=== PATIENT | male | born 1985 | race Caucasian/White ===

== ENCOUNTER 2017-09-11 05:23 | Inpatient (IN) | payer OTHER ==
[2017-09-11] MEDS ORDERED: SODIUM CHLORIDE 0.9% 1,000 ML IV STA (05:45)
[2017-09-11] MEDS ORDERED: MIDAZOLAM (PF) 1 MG/ML 5 ML VIAL IV STA (05:51)
[2017-09-11 06:16] LABS: Basophils % (A) 0 %; CH 33.6; CHCM 33.9; Eosinophils # (A) 0.1 k/uL (0-0.7); Eosinophils % (A) 1 %; HCT 48.3 % (39.0-53.0); HDW 2.01; HGB 16.3 gm/dL (13.0-17.5); Luc # (Auto) 0.18; Luc % (Auto) 2; Lymphocytes # (A) 2.3 k/uL (1.0-4.8); Lymphocytes % (A) 29 %; MCH 33.5 pg (25.0-35.0); MCHC 33.6 g/dL (31.0-37.0); MCV 99.5 fL (80.0-100.0); Mean Platelet Volume 7.1; Monocytes # (A) 0.5 k/uL (0-1.0); Monocytes % (A) 6 %; Neutrophils # (A) 4.9 k/uL (1.3-7.7); Neutrophils % (A) 62 %; RBC 4.86 m/uL (4.30-5.90); RDW 12.5 % (11.5-15.5); WBC (Perox) 7.43
--- NOTE | 2017-09-11 06:17 | ED ---
Overdose HPI - General Chief Complaint: Overdose Stated Complaint: overdose Time Seen by Provider: 09/11/17 05:40 Source: EMS Mode of arrival: EMS Limitations: altered mental status - History of Present Illness Initial Comments: This patient is a 31-year-old man brought in by EMS. The patient is not able to give any history due to altered level of consciousness. It was reported that the patient had taken approximately 100 tablets of Tylenol PM and also had about a fifth of liquor to drink. The exact time of the ingestion was unknown. MD Complaint: intentional overdose -: unknown - Related Data Home Medications Medication Instructions Recorded Confirmed Gabapentin [Neurontin] 300 mg PO TID 09/11/17 09/11/17 Venlafaxine HCl [Effexor XR] 75 mg PO DAILY 09/11/17 09/11/17 Allergies Allergy/AdvReac Type Severity Reaction Status Date / Time No Known Allergies Allergy Verified 09/11/17 12:48 Review of Systems ROS Statement: Those systems with pertinent positive or pertinent negative responses have been documented in the HPI. ROS Other: All systems not noted in ROS Statement are negative. Limitations: ROS unobtainable due to patients medical condition (Unable to obtain review of systems due to altered level of consciousness) Past Medical History Past Medical History: Unable to Obtain History of Any Multi-Drug Resistant Organisms: Unobtainable Past Surgical History: Unable to Obtain Past Psychological History: Unable to Obtain Smoking Status: Unknown if ever smoked Past Alcohol Use History: Unable to Obtain Past Drug Use History: Unable to Obtain - Past Family History Mother History Unknown: Yes Family Medical History: Thyroid Disorder Additional Family Medical History / Comment(s): Vertigo, Chronic Pain, Sister(s) History Unknown: Yes Family Medical History: Diabetes Mellitus General Exam Limitations: altered mental status General appearance: obtunded Head exam: Present: atraumatic, normocephalic Eye exam: Present: normal appearance, PERRL (Pupils approximately 6 man and sluggish.). Absent: scleral icterus, conjunctival injection ENT exam: Present: mucous membranes dry Neck exam: Present: normal inspection, other (No palpable deformity or step-off) . Absent: tenderness Respiratory exam: Present: rhonchi (Scattered), other (Sonorous breath sounds). Absent: respiratory distress, wheezes, rales, stridor Cardiovascular Exam: Present: normal rhythm, tachycardia (Rate approximately 116 at my exam), normal heart sounds. Absent: systolic murmur, diastolic murmur , rubs, gallop GI/Abdominal exam: Present: soft, diminished bowel sounds. Absent: distended, guarding, rebound, mass Extremities exam: Present: normal inspection, normal capillary refill. Absent: pedal edema, calf tenderness Back exam: Present: normal inspection. Absent: tenderness (No deformity or step -off), vertebral tenderness Neurological exam: Present: altered, reflexes normal, other (Patient's GCS is 8 (E=1, V=2, M=5)) Skin exam: Present: warm, dry, intact, normal color. Absent: rash Course Vital Signs 09/11/17 09/11/17 09/11/17 05:24 06:40 06:51 Temperature 96.8 F L Pulse Rate 112 H 105 H 105 H Respiratory 18 20 20 Rate Blood Pressure 150/84 142/99 132/83 O2 Sat by Pulse 95 100 99 Oximetry 09/11/17 09/11/17 09/11/17 07:53 07:57 08:00 Temperature Pulse Rate 105 H 0 L 0 L Respiratory 16 Rate Blood Pressure 124/70 O2 Sat by Pulse 100 Oximetry 09/11/17 09/11/17 08:15 08:30 Temperature Pulse Rate 0 L 0 L Respiratory Rate Blood Pressure O2 Sat by Pulse Oximetry Procedures - Intubation Time Out Performed: Yes (Indication is altered level of consciousness with loss of protective airway) Sedative: Versed Laryngoscope: Alicia Size: 3 Assist Device Used: fiber optic device ET Tube Size: 8 Tube Placement Confirmation: visualized tube passing through cords Patient Tolerated Procedure: other (Unable to visualize cords with the direct laryngoscope and the glide scope was subsequently used.) Intubation Complications: difficult intubation, other (There were no desaturations) Additional Comments: Scope did reveal secretions in the pharynx. Medical Decision Making - Lab Data Result diagrams: 09/12/17 05:35 09/12/17 18:37 Lab Results 09/11/17 09/11/17 09/11/17 Range/Units 05:39 05:39 05:39 WBC 8.0 (3.8-10.6) k/uL RBC 4.86 (4.30-5.90) m/uL Hgb 16.3 (13.0-17.5) gm/dL Hct 48.3 (39.0-53.0) % MCV 99.5 (80.0-100.0) fL MCH 33.5 (25.0-35.0) pg MCHC 33.6 (31.0-37.0) g/dL RDW 12.5 (11.5-15.5) % Plt Count 240 (150-450) k/uL Neutrophils % 62 % Lymphocytes % 29 % Monocytes % 6 % Eosinophils % 1 % Basophils % 0 % Neutrophils # 4.9 (1.3-7.7) k/uL Lymphocytes # 2.3 (1.0-4.8) k/uL Monocytes # 0.5 (0-1.0) k/uL Eosinophils # 0.1 (0-0.7) k/uL Basophils # 0.0 (0-0.2) k/uL Sodium 145 (137-145) mmol/L Potassium 3.7 (3.5-5.1) mmol/L Chloride 109 H (98-107) mmol/L Carbon Dioxide 23 (22-30) mmol/L Anion Gap 13 mmol/L BUN 9 (9-20) mg/dL Creatinine 0.70 (0.66-1.25) mg/dL Est GFR (MDRD) Af Amer >60 (>60 ml/min/1.73 sqM) Est GFR (MDRD) Non-Af >60 (>60 ml/min/1.73 sqM) Glucose 63 L (74-99) mg/dL Calcium 8.4 (8.4-10.2) mg/dL Total Bilirubin 0.6 (0.2-1.3) mg/dL AST 33 (17-59) U/L ALT 25 (21-72) U/L Alkaline Phosphatase 80 (38-126) U/L Total Protein 6.8 (6.3-8.2) g/dL Albumin 4.2 (3.5-5.0) g/dL Salicylates <1.0 mg/dL Urine Opiates Screen Not Detected (NotDetected) Ur Oxycodone Screen Not Detected (NotDetected) Urine Methadone Screen Not Detected (NotDetected) Ur Propoxyphene Screen Not Detected (NotDetected) Acetaminophen 319.0 H* ug/mL Ur Barbiturates Screen Not Detected (NotDetected) U Tricyclic Antidepress Not Detected (NotDetected) Ur Phencyclidine Scrn Not Detected (NotDetected) Ur Amphetamines Screen Not Detected (NotDetected) U Methamphetamines Scrn Not Detected (NotDetected) U Benzodiazepines Scrn Not Detected (NotDetected) Urine Cocaine Screen Not Detected (NotDetected) U Marijuana (THC) Screen Not Detected (NotDetected) Serum Alcohol 288 mg/dL - EKG Data -: EKG Interpreted by Me EKG shows normal: sinus rhythm (With occasional PVCs), axis (Normal), intervals (Normal) Rate: tachycardia (Rate approximate 112 bpm) Interpretation: other (ST depressions in the inferior leads consistent with possible ischemia.) Critical Care Time Critical Care Time: Yes (40 minutes) Disposition Clinical Impression: Acetaminophen overdose, Alcohol intoxication, Altered mental status, Required emergent intubation Disposition: ADMITTED IP TO THIS [facility] Condition: Critical
[2017-09-11 06:28] LABS: ALT 25 U/L (21-72); AST 33 U/L (17-59); Alkaline Phosphatase 80 U/L (38-126); Anion Gap 13 mmol/L; Blood Urea Nitrogen 9 mg/dL (9-20); Calcium 8.4 mg/dL (8.4-10.2); Carbon Dioxide 23 mmol/L (22-30); Chloride 109 mmol/L (98-107); Glucose 63 mg/dL (74-99); Non-African American GFR(MDRD) >60 (>60 ml/min/1.73 sqM); Potassium 3.7 mmol/L (3.5-5.1); Salicylate <1.0 mg/dL; Sodium 145 mmol/L (137-145); Total Bilirubin 0.6 mg/dL (0.2-1.3); Total Protein 6.8 g/dL (6.3-8.2)
[2017-09-11] MEDS: PROPOFOL 1,000 MG/100 ML VIAL IV ONE ×2 (06:33→10:31)
[2017-09-11 06:43] LABS: Alcohol 288 mg/dL
--- NOTE | 2017-09-11 06:45 | XR ---
EXAM: XR Chest, 1 View CLINICAL HISTORY: Reason: post-intubation TECHNIQUE: Frontal view of the chest. COMPARISON: No relevant prior studies available. FINDINGS: Lungs: Mild hazy prominence of the interstitial markings is seen with evidence of mild peribronchial cuffing suggesting mild pulmonary edema. Pleural space: Unremarkable. No pneumothorax. Heart: Unremarkable. No cardiomegaly. Mediastinum: Unremarkable. Bones/joints: Unremarkable. Tubes, lines and devices: Tip of ET tube is approximately 4 cm from the charli. Tip of NG tube overlies the stomach. Monitoring leads overlie the chest, somewhat limiting evaluation. IMPRESSION: 1. Tip of ET tube is approximately 4 cm from the charli. Tip of NG tube overlies the stomach. 2. Mild hazy prominence of the interstitial markings with evidence of mild peribronchial cuffing suggesting mild pulmonary edema.
[2017-09-11] MEDS ORDERED: ACETYLCYSTEINE IV 10,500 MG in DEXTROSE 5% IN WATER 200 ML IV ONE ×2 (07:00)
[2017-09-11] MEDS ORDERED: IPRATROPIUM-ALBUTEROL 3 ML NEB INHALATION PRN (07:33)
[2017-09-11] MEDS ORDERED: ARTIFICIAL TEARS OINTMENT 3.5 GM TUBE BOTH EYES PRN (07:33)
[2017-09-11] MEDS ORDERED: NALOXONE 0.4 MG/ML 1 ML VIAL IV PRN (07:33)
[2017-09-11] MEDS ORDERED: DEXTROSE 5% IN WATER 500 ML with ACETYLCYSTEINE IV 3,500 MG IV ONE (08:00)
[2017-09-11 08:11] LABS: ABG HCO3 22 mmol/L (21-25); ABG PCO2 41 mmHg (35-45); ABG PH 7.36 (7.35-7.45); ABG PO2 >420 mmHg (83-108); ABG TCO2 23 mmol/L (19-24)
[2017-09-11 08:12] LABS: ABG Base Excess -2.5 mmol/L
[2017-09-11] MEDS: SODIUM CHLORIDE 0.9% 1,000 ML IV SCH ×3 (08:54→21:50)
[2017-09-11 09:16] LABS: Glucose,Whole Blood 135 mg/dL (75-99)
--- NOTE | 2017-09-11 10:17 | XR ---
EXAMINATION TYPE: XR chest 1V portable DATE OF EXAM: 09/11/2017 HISTORY: tube placement. REFERENCE: Previous study dated earlier today.. FINDINGS: The patient is ET tube and NG tube remain in place unchanged from previous. The lungs appear clear. Pleural space are clear. The heart is not enlarged. IMPRESSION: NO ACTIVE INTRATHORACIC DISEASE.
[2017-09-11] MEDS: CHLORHEXIDINE GLUCONATE 15 ML CUP MUCOUS MEM SCH ×2 (11:52→21:50)
[2017-09-11] MEDS: FAMOTIDINE 20 MG/2 ML VIAL IV SCH ×2 (11:52→21:50)
[2017-09-11 11:59] VITALS: BMI 21.5
[2017-09-11] MEDS ORDERED: DEXTROSE 5% IN WATER 1,000 ML with ACETYLCYSTEINE IV 7,000 MG IV ONE (12:00)
[2017-09-11 12:03] LABS: Basophils % (A) 0 %; CHCM 33.1; Eosinophils # (A) 0.1 k/uL (0-0.7); Eosinophils % (A) 1 %; HCT 44.6 % (39.0-53.0); HDW 2.02; HGB 14.4 gm/dL (13.0-17.5); Luc # (Auto) 0.14; Luc % (Auto) 2; Lymphocytes # (A) 1.8 k/uL (1.0-4.8); Lymphocytes % (A) 25 %; MCH 32.4 pg (25.0-35.0); MCHC 32.3 g/dL (31.0-37.0); MCV 100.3 fL (80.0-100.0); Mean Platelet Volume 7.3; Monocytes # (A) 0.3 k/uL (0-1.0); Monocytes % (A) 5 %; Neutrophils # (A) 4.7 k/uL (1.3-7.7); Neutrophils % (A) 67 %; RBC 4.45 m/uL (4.30-5.90); RDW 12.4 % (11.5-15.5); WBC (Perox) 7.14
[2017-09-11 12:15] LABS: ALT 28 U/L (21-72); AST 19 U/L (17-59); Alcohol 143 mg/dL; Alkaline Phosphatase 31 U/L (38-126); Anion Gap 12 mmol/L; Blood Urea Nitrogen 5 mg/dL (9-20); Calcium 7.6 mg/dL (8.4-10.2); Carbon Dioxide 20 mmol/L (22-30); Chloride 111 mmol/L (98-107); Glucose 83 mg/dL (74-99); Magnesium 1.6 mg/dL (1.6-2.3); Non-African American GFR(MDRD) >60 (>60 ml/min/1.73 sqM); Potassium 3.2 mmol/L (3.5-5.1); Sodium 143 mmol/L (137-145); Total Bilirubin 0.5 mg/dL (0.2-1.3); Total Protein 5.6 g/dL (6.3-8.2)
[2017-09-11 12:23] LABS: Acetaminophen 200.4 ug/mL
[2017-09-11 12:25] LABS: Glucose,Whole Blood 112 mg/dL (75-99)
[2017-09-11] MEDS ORDERED: Potassium Replacement Protocol 1 EACH MISC MISCELLANE PRN (13:32)
[2017-09-11] MEDS ORDERED: Magnesium Replacement Protocol 1 EACH MISC MISCELLANE PRN (13:33)
--- NOTE | 2017-09-11 14:06 | P.CNPUL ---
History of Present Illness Consult date: 09/11/17 Requesting physician: John Bennett Reason for consult: other (Acute Tylenol overdose) Chief complaint: Overdose History of present illness: This is a 31-year-old white male with history of depression, history of drug abuse, patient was recently admitted in [place] for Aleve overdose. Patient was eventually discharged home, and he is supposedly experiencing lots of financial issues, and if she was on the job. 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 Patient was supposedly placed on antidepressant medications, but he did not comply because he had symptoms of weakness and rigidity mostly related to his psychiatric medications. Earlier this morning, his girlfriend called EMS because she witnessed that he took about 100 tablets of Tylenol PM and A FIFTH of liquor. Exact time of the ingestion was unknown, but according to his girlfriend was intentional overdose, and he wanted to commit suicide. Patient arrived to the ER this morning, patient had altered level of consciousness, and he was intubated almost upon arrival to the ER. Placed on mechanical ventilation, patient was also placed on acetylcysteine intravenously as per protocol for acute acetaminophen overdose. His drug screen was mostly positive for elevated acetaminophen level, it was 319, and his serum alcohol level was 288. Repeat acetaminophen level in the ICU was noted to be down to 200.4, and alcohol level down to 143. Liver enzymes upon presentation to the ER were normal, repeat liver enzymes at 11:45 AM were also normal. ABG post intubation showed a pO2 of 420 be suitable for 1 pH of 7.36. Basic metabolic profile was noted to be normal. CBC was noted to be normal. Chest x-ray was also noted to show minimal haziness and prominence of the interstitial markings with mild peribronchial cuffing. Repeat chest x-ray in the ICU was basically normal. Patient is sedated, on propofol drip, and no information could be obtained from the patient himself, most of the information was obtained from his brother and mother at bedside. Review of Systems ROS unobtainable: due to endotracheal tube (According to his family, patient has mostly symptoms of depression, and lots of stress recently on the job, also experiencing financial difficulties. Otherwise not much information could be obtained from the family.) Past Medical History Past Medical History: Unable to Obtain Additional Past Medical History / Comment(s): ETOH, Overdose of Aleve, Osteomyelitis of third toe on right as a child, History of Any Multi-Drug Resistant Organisms: None Reported Past Surgical History: Adenoidectomy, Tonsillectomy Past Anesthesia/Blood Transfusion Reactions: No Reported Reaction Smoking Status: Current every day smoker - Past Family History Mother History Unknown: Yes Family Medical History: Thyroid Disorder Additional Family Medical History / Comment(s): Vertigo, Chronic Pain, Sister(s) History Unknown: Yes Family Medical History: Diabetes Mellitus Medications and Allergies Home Medications Medication Instructions Recorded Confirmed Type Gabapentin [Neurontin] 300 mg PO TID 09/11/17 09/11/17 History Venlafaxine HCl [Effexor XR] 75 mg PO DAILY 09/11/17 09/11/17 History Allergies Allergy/AdvReac Type Severity Reaction Status Date / Time No Known Allergies Allergy Verified 09/11/17 12:48 Physical Exam Vitals: Vital Signs Temp Pulse Resp BP Pulse Ox 09/11/17 11:45 74 16 96/52 100 09/11/17 11:30 95 28 H 96/52 100 09/11/17 11:15 78 15 90/54 100 09/11/17 11:00 79 18 90/54 100 09/11/17 10:45 80 13 90/53 100 09/11/17 10:30 81 20 90/53 100 09/11/17 10:15 82 13 95/58 100 09/11/17 10:00 86 18 95/58 100 09/11/17 09:58 96.8 F L 105 H 16 124/70 100 09/11/17 09:45 88 19 137/81 100 09/11/17 09:30 97.7 F 89 14 137/81 100 09/11/17 08:30 0 L 09/11/17 08:15 0 L 09/11/17 08:00 0 L 09/11/17 07:57 0 L 09/11/17 07:53 105 H 16 124/70 100 09/11/17 06:51 105 H 20 132/83 99 09/11/17 06:40 105 H 20 142/99 100 09/11/17 05:24 96.8 F L 112 H 18 150/84 95 Intake and Output 09/10/17 09/11/17 09/11/17 22:59 06:59 14:59 Intake Total 7.500 392.5 Output Total 700 250 Balance -692.500 142.5 Intake: Intake, IV Titration 7.500 392.5 Amount Propofol 1,000 mg In 100 7.500 92.5 ml @ Titrate IV .Q0M ONE Rx#:[id number] Sodium Chloride 0.9% 1, 300 000 ml @ 150 mls/hr IV . Q6H40M [facility] Rx#:[id number] Output: Gastric Drainage 300 Urine 400 250 Other: Weight 68.039 kg 68.039 kg Patient Weight 09/12/17 06:59 Weight 68.039 kg Limitations: altered mental status General appearance: obtunded, intubated, on mechanical ventilation, in no distress. Head exam: Normocephalic, minimal fine superficial laceration is noted on his left face. Eye exam: PERRLA, EOMI, no icterus noted, ENT exam: Intact and mucous membranes, moist. Neck exam: No cervical lymphadenopathy, no stridor, endotracheal tube is intact. No thyromegaly noted. Respiratory exam: Clear throughout, no crackles nor rhonchi and wheezes. Cardiovascular Exam: Normal S1 and S2, no S3 gallop, no murmur GI/Abdominal exam: Soft, nontender, no megaly, no rebound, positive bowel sounds. Extremities exam: No clubbing, no edema, no cyanosis. Back exam: Relatively unremarkable, Neurological exam: Cannot be assessed, patient is fully sedated, on propofol, and on mechanical ventilation. Skin exam: Minimal fine lacerations related to trauma very superficial noted on the lower extremities him a size area, possibly related to self injury. Results - Laboratory Findings CBC and BMP: 09/11/17 11:47 09/11/17 11:47 ABG ABG pH 7.36 (7.35-7.45) 09/11/17 07:43 ABG pCO2 41 mmHg (35-45) 09/11/17 07:43 ABG pO2 >420 mmHg (83-108) H 09/11/17 07:43 ABG O2 Saturation 100.0 % (94-97) H 09/11/17 07:43 Abnormal lab findings: Abnormal Labs 09/11/17 09/11/17 09/11/17 05:39 07:43 09:07 MCV ABG pO2 >420 H ABG O2 Saturation 100.0 H Potassium Chloride 109 H Carbon Dioxide BUN Creatinine Glucose 63 L POC Glucose (mg/dL) 135 H Calcium Alkaline Phosphatase Total Protein Albumin Acetaminophen 319.0 H* 09/11/17 09/11/17 09/11/17 11:47 11:47 12:24 MCV 100.3 H ABG pO2 ABG O2 Saturation Potassium 3.2 L Chloride 111 H Carbon Dioxide 20 L BUN 5 L Creatinine 0.61 L Glucose POC Glucose (mg/dL) 112 H Calcium 7.6 L Alkaline Phosphatase 31 L Total Protein 5.6 L Albumin 3.3 L Acetaminophen 200.4 H* - Diagnostic Findings Chest x-ray: image reviewed (As noted in HPI.) Assessment and Plan Plan: Impression: 1 acute acetaminophen overdose 2 acute alcohol intoxicatio 3 acute diphenhydramine overdose 4 acute hypoxic and hypercapnic respiratory failure secondary to multiple drug toxicity and overdose as noted above. 5 history of major depression and previous suicidal attempts. 6 acute suicidal attempt secondary to depression. Recommendation: Patient will remain on mechanical ventilation for now, will follow the protocol regarding his acetaminophen overdose, we'll address nutritional support, continue IV fluids, continue to monitor closely his acetaminophen level and his liver profile. I had a long discussion with his mother and his brother at bedside, and hopefully patient could be extubated in the next 24 hours. Psychiatric consult was initiated. Patient will also be placed on GI and DVT prophylaxis. We'll continue to follow closely. Critical care time is 40 minutes. Time with Patient: Greater than 30
[2017-09-11] MEDS: MAGNESIUM SULFATE-D5W PMX 1 GM in DEXTROSE/WATER 1 100ML.BAG IVPB SCH ×2 (14:36→15:37)
[2017-09-11] MEDS: POTASSIUM CHLORIDE 10 MEQ, LIDOCAINE 2% INJ 10 MG in SODIUM CHLORIDE 0.9% 100 ML IV SCH ×4 (14:48→21:52)
[2017-09-11 15:03] LABS: INR 1.2 (<1.2); Prothrombin Time 12.3 sec (9.0-12.0)
[2017-09-11] MEDS: PROPOFOL 1,000 MG/100 ML VIAL IV SCH ×3 (15:37→23:23)
--- NOTE | 2017-09-11 17:08 | HP ---
HISTORY AND PHYSICAL DATE OF ADMISSION: 09/11/17. PRESENTING COMPLAINT: Overdose. HISTORY OF PRESENTING COMPLAINT: This is a 31-year-old patient with apparently no family doctor. History is obtained from ER notes and ICU nurse who got the history from other family members visiting. Patient is in the process of getting a divorce, living with his girlfriend. Apparently drugs is the reason he is going through divorce. The patient did apparently has been drinking half a case of beer before doing cranium, doing mushrooms. 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 The patient's girlfriend called the EMS. The patient had taken an overdose of 100 tablets of Tylenol p.m. and a 5th of liquor. The girlfriend did make him vomit once. For airway protection the patient is intubated in the ER. The patient is currently in the ICU with ventilator with FiO2 45% and PEEP of 5. The patient is started on Mucomyst drip and Diprivan drip. The patient has been prescribed Effexor and Neurontin which apparently patient has not been taking. Patient did overdose about a month before. REVIEW OF SYSTEMS: Review of systems cannot be obtained. The patient is intubated. PAST MEDICAL HISTORY: Depression, recreational drug use. PAST SURGICAL HISTORY: Adenoidectomy, tonsillectomy. PAST PSYCH HISTORY: Anxiety and depression. SOCIAL HISTORY: The patient does smoke. Does drink beer and vodka in addition about 12-16 beers a day. Does marijuana. Has done prescription drug abuse. Has a medical marijuana card. Vicodin, Concerta, questionable bath salts. FAMILY HISTORY: Thyroid disorder, chronic pain. HOME MEDICATIONS: 1. Effexor XR 75 mg a day. 2. Neurontin 300 mg p.o. t.i.d. The patient may not be taking. ALLERGIES: None. PHYSICAL EXAMINATION: Vital signs on examination, temperature 96.8, pulse 105, respirations 16, blood pressure 120/70, pulse 100% on ventilator. GENERAL APPEARANCE: Lying in bed, intubated. EYES: Pupils equal. Conjunctivae normal. HEENT: Endotracheal tube in place. NECK: JVD unable to assess. Mass not palpable. Respiratory effort normal. LUNGS: Diminished breath sounds. CARDIOVASCULAR: First and second sounds are normal. No edema. ABDOMEN: Soft, nontender. Liver and spleen not palpable. LYMPHATIC: No lymph node palpable in the neck or axillae. PSYCHIATRY: Depressed. NEUROLOGICAL: Pupils equal. Plantars are downgoing. INVESTIGATIONS: White count 18, hemoglobin 16.3. Blood gas showed pH of 7.36, potassium 3.7, BUN and creatinine are normal. Accu-Cheks are noted. Serum acetone level was 319 on presentation. Serum alcohol was 288, ASSESSMENT: 1. Acute acetaminophen toxicity from taking 100 Tylenol PM though patient did vomit x1. 2. Acute metabolic encephalopathy from drug overdose including alcohol. 3. Acute alcohol intoxication, present on admission. 4. Major depression with attempted overdose. 5. Chronic alcohol dependence. 6. Chronic nicotine dependence. 7. Social situation in a patient undergoing a divorce and living with a girlfriend. 8. Acute hypoxic respiratory failure from respiratory compromise from medications. Patient is currently on ventilator assist. PLAN: Patient's electrolytes and liver function will be closely followed including [facility] which is the most sensitive situation like this with acetaminophen overdose. Patient getting IV fluids. Dr. Wagner from Critical Care was consulted. Also Psychiatry. Dr. Pritchard was consulted. Will also consult GI Dr. Lopes in view of the acetaminophen overdose. Patient also getting the IV Mucomyst. Patient will be given a nicotine patch. Prognosis is guarded. MMODL / IJN: [id number] /
[2017-09-11 17:18] LABS: Glucose,Whole Blood 80 mg/dL (75-99)
[2017-09-11 18:49] LABS: Basophils % (A) 0 %; CHCM 32.9; Eosinophils # (A) 0.1 k/uL (0-0.7); Eosinophils % (A) 1 %; HDW 2.02; HGB 14.6 gm/dL (13.0-17.5); Luc # (Auto) 0.19; Luc % (Auto) 2; Lymphocytes # (A) 2.3 k/uL (1.0-4.8); Lymphocytes % (A) 23 %; MCH 33.5 pg (25.0-35.0); MCHC 33.2 g/dL (31.0-37.0); MCV 100.8 fL (80.0-100.0); Mean Platelet Volume 7.1; Monocytes # (A) 0.5 k/uL (0-1.0); Monocytes % (A) 5 %; Neutrophils % (A) 69 %; RBC 4.36 m/uL (4.30-5.90); RDW 12.3 % (11.5-15.5); WBC 10.1 k/uL (3.8-10.6); WBC (Perox) 9.34
[2017-09-11 18:51] LABS: INR 1.2 (<1.2); Partial Thromboplastin Time 25.1 sec (22.0-30.0); Prothrombin Time 12.2 sec (9.0-12.0)
[2017-09-11] MEDS: DIAZEPAM 2 MG TAB PO SCH ×2 (18:59→22:04)
[2017-09-11 19:01] LABS: ALT 27 U/L (21-72); AST 18 U/L (17-59); Alkaline Phosphatase 50 U/L (38-126); Anion Gap 11 mmol/L; Blood Urea Nitrogen 4 mg/dL (9-20); Calcium 8.1 mg/dL (8.4-10.2); Carbon Dioxide 19 mmol/L (22-30); Chloride 111 mmol/L (98-107); Glucose 69 mg/dL (74-99); Non-African American GFR(MDRD) >60 (>60 ml/min/1.73 sqM); Potassium 3.3 mmol/L (3.5-5.1); Sodium 141 mmol/L (137-145); Total Bilirubin 0.8 mg/dL (0.2-1.3); Total Protein 5.4 g/dL (6.3-8.2)
[2017-09-11] MEDS: NICOTINE 21MG/24HR PATCH TRANSDERM SCH (20:06)
[2017-09-12 01:09] LABS: INR 1.2 (<1.2); Partial Thromboplastin Time 24.8 sec (22.0-30.0); Prothrombin Time 12.1 sec (9.0-12.0)
[2017-09-12 01:22] LABS: ALT 31 U/L (21-72); AST 29 U/L (17-59); Alkaline Phosphatase 49 U/L (38-126); Anion Gap 7 mmol/L; Blood Urea Nitrogen 6 mg/dL (9-20); Calcium 8.3 mg/dL (8.4-10.2); Carbon Dioxide 18 mmol/L (22-30); Chloride 112 mmol/L (98-107); Glucose 118 mg/dL (74-99); Non-African American GFR(MDRD) >60 (>60 ml/min/1.73 sqM); Potassium 3.6 mmol/L (3.5-5.1); Sodium 137 mmol/L (137-145); Total Bilirubin 1.2 mg/dL (0.2-1.3); Total Protein 5.2 g/dL (6.3-8.2)
[2017-09-12] MEDS ORDERED: POTASSIUM CHLORIDE ORAL LIQUID 40 MEQ/30 ML CUP NG-TUBE SCH (03:00)
[2017-09-12] MEDS ORDERED: ONDANSETRON 4 MG/2 ML VIAL IVP PRN (04:30)
[2017-09-12] MEDS: SODIUM CHLORIDE 0.9% 1,000 ML IV SCH ×3 (04:31→17:55)
[2017-09-12 04:42] LABS: ABG Base Excess -5.1 mmol/L; ABG HCO3 19 mmol/L (21-25); ABG PCO2 30 mmHg (35-45); ABG PH 7.41 (7.35-7.45); ABG PO2 185 mmHg (83-108); ABG TCO2 20 mmol/L (19-24)
[2017-09-12 06:07] LABS: Glucose,Whole Blood 115 mg/dL (75-99)
[2017-09-12 06:11] LABS: Basophils % (A) 0 %; CH 32.8; CHCM 31.9; Eosinophils # (A) 0.1 k/uL (0-0.7); Eosinophils % (A) 1 %; HCT 50.3 % (39.0-53.0); HDW 2.05; HGB 16.3 gm/dL (13.0-17.5); Luc # (Auto) 0.07; Luc % (Auto) 1; Lymphocytes # (A) 0.8 k/uL (1.0-4.8); Lymphocytes % (A) 7 %; MCH 33.5 pg (25.0-35.0); MCHC 32.5 g/dL (31.0-37.0); MCV 103.1 fL (80.0-100.0); Macrocytosis Slight; Mean Platelet Volume 7.2; Monocytes # (A) 0.3 k/uL (0-1.0); Monocytes % (A) 3 %; Neutrophils # (A) 11.2 k/uL (1.3-7.7); Neutrophils % (A) 89 %; RBC 4.88 m/uL (4.30-5.90); RDW 12.4 % (11.5-15.5); WBC 12.6 k/uL (3.8-10.6); WBC (Perox) 12.63
[2017-09-12 06:16] LABS: INR 1.4 (<1.2); Prothrombin Time 13.4 sec (9.0-12.0)
[2017-09-12 06:23] LABS: Anion Gap 11 mmol/L; Calcium 8.8 mg/dL (8.4-10.2); Carbon Dioxide 15 mmol/L (22-30); Chloride 112 mmol/L (98-107); Glucose 118 mg/dL (74-99); Non-African American GFR(MDRD) >60 (>60 ml/min/1.73 sqM); Sodium 138 mmol/L (137-145); Total Bilirubin 3.9 mg/dL (0.2-1.3)
[2017-09-12 06:28] LABS: Blood Urea Nitrogen 5 mg/dL (9-20); Magnesium 2.1 mg/dL (1.6-2.3); Phosphorous 2.6 mg/dL (2.5-4.5); Potassium 4.3 mmol/L (3.5-5.1); Total Protein 6.3 g/dL (6.3-8.2)
[2017-09-12 06:29] LABS: ALT 60 U/L (21-72); AST 169 U/L (17-59); Alkaline Phosphatase 66 U/L (38-126)
[2017-09-12] MEDS ORDERED: ENOXAPARIN 40 MG/0.4 ML SYRINGE SQ SCH (09:00)
[2017-09-12] MEDS: NICOTINE 21MG/24HR PATCH TRANSDERM SCH (09:06)
[2017-09-12] MEDS: FAMOTIDINE 20 MG/2 ML VIAL IV SCH ×2 (09:07→23:41)
[2017-09-12] MEDS: DIAZEPAM 2 MG TAB PO SCH ×4 (10:39→23:41)
--- NOTE | 2017-09-12 11:28 | P.PN ---
Subjective Progress Note Date: 09/12/17 progress note dated 09/12/2017 This is a 31-year-old male who was admitted with a diagnosis on September 11 of Tylenol overdose for the purposes of suicide. He was actually intubated for airway protection on September 11 because he has to poor mental status. He was extubated by my partner early this morning about 4:15. he apparently took quite a number of Tylenol PMs. the estimated his he took 100. His Tylenol level was initially 319 and then 74. He initially received IV N-acetylcysteine and then recommended to have oral N-acetylcysteine. The patient's currently been weaned to room air. His IV is saline at 150 mL an hour. the patient's Adler can be discontinued and he came back and transferred to the medical surgical floor. We did that we did ask psychiatry to see him. They've not seen him as yet. he has no particular complaints. awake and alert. he apparently also drank a fifth of liquor. This is his second suicide attempt. Initially it was attempted with Motrin. Objective - Vital Signs Vital signs: Vital Signs Temp 97.8 F 09/12/17 08:00 Pulse 96 09/12/17 10:00 Resp 30 H 09/12/17 10:00 BP 138/89 09/12/17 10:00 Pulse Ox 99 09/12/17 10:00 Intake & Output 09/11/17 09/12/17 09/12/17 18:59 06:59 18:59 Intake Total 1992.5 2822.890 662.5 Output Total 875 1245 450 Balance 1117.5 1577.890 212.5 Weight 68.039 kg 73.5 kg Intake: IV 2537.5 662.5 Dextrose 5% in Water 1, 687.5 62.5 000 ml @ 64.688 mls/hr IV .Q16H ONE with Acetylcysteine IV 7,000 mg Rx#:[id number] Potassium Chloride 10 meq 200 Lidocaine 2% Inj 10 mg In Sodium Chloride 0.9% 100 ml @ 100 mls/hr IV Q1HR [facility] Rx#:[id number] Sodium Chloride 0.9% 1, 1650 600 000 ml @ 150 mls/hr IV . Q6H40M [facility] Rx#:[id number] Intake, IV Titration 1992.5 240.390 Amount Magnesium Sulfate-D5w Pmx 200 1 gm In Dextrose/Water 1 100ml.bag @ 100 mls/hr IVPB Q1H [facility] Rx#: [id number] Potassium Chloride 10 meq 200 Lidocaine 2% Inj 10 mg In Sodium Chloride 0.9% 100 ml @ 100 mls/hr IV Q1HR [facility] Rx#:[id number] Propofol 1,000 mg In 100 92.5 ml @ Titrate IV .Q0M [facility] Rx#:[id number] Propofol 1,000 mg In 100 240.390 ml @ Titrate IV .Q0M [facility] Rx#:[id number] Sodium Chloride 0.9% 1, 1500 000 ml @ 150 mls/hr IV . Q6H40M [facility] Rx#:[id number] Other 45 Output: Gastric Drainage 600 Urine 875 645 450 Other: Voiding Method Indwelling Catheter Indwelling Catheter Indwelling Catheter - Exam No acute distress, oriented 3. HEENT examination is grossly unremarkable. Mucous membranes are moist. No oral lesions. Neck supple. Full range of motion. No adenopathy or thyromegaly. Cardiovascular examination reveals regular rhythm rate. S1-S2 normal. No S3- S4 or murmur. Lungs reveal relatively clear breath sounds. A few scattered mild rhonchi noted. No wheezes or crackles. Abdomen soft bowel sounds are heard. No masses or tenderness. Extremities are intact. No cyanosis clubbing or edema. Skin without rash. Neurologic examination is nonfocal. - Labs CBC & Chem 7: 09/12/17 05:35 09/12/17 05:35 Labs: Abnormal Lab Results - Last 24 Hours (Table) 09/11/17 09/11/17 09/11/17 Range/Units 11:47 11:47 12:24 WBC (3.8-10.6) k/uL MCV 100.3 H (80.0-100.0) fL Neutrophils # (1.3-7.7) k/uL Lymphocytes # (1.0-4.8) k/uL PT (9.0-12.0) sec INR (<1.2) ABG pCO2 (35-45) mmHg ABG pO2 (83-108) mmHg ABG HCO3 (21-25) mmol/L ABG O2 Saturation (94-97) % Potassium 3.2 L (3.5-5.1) mmol/L Chloride 111 H (98-107) mmol/L Carbon Dioxide 20 L (22-30) mmol/L BUN 5 L (9-20) mg/dL Creatinine 0.61 L (0.66-1.25) mg/dL Glucose (74-99) mg/dL POC Glucose (mg/dL) 112 H (75-99) mg/dL Calcium 7.6 L (8.4-10.2) mg/dL Total Bilirubin (0.2-1.3) mg/dL AST (17-59) U/L Alkaline Phosphatase 31 L (38-126) U/L Total Protein 5.6 L (6.3-8.2) g/dL Albumin 3.3 L (3.5-5.0) g/dL Acetaminophen 200.4 H* ug/mL 09/11/17 09/11/17 09/11/17 Range/Units 14:35 18:24 18:24 WBC (3.8-10.6) k/uL MCV 100.8 H (80.0-100.0) fL Neutrophils # (1.3-7.7) k/uL Lymphocytes # (1.0-4.8) k/uL PT 12.3 H 12.2 H (9.0-12.0) sec INR 1.2 H 1.2 H (<1.2) ABG pCO2 (35-45) mmHg ABG pO2 (83-108) mmHg ABG HCO3 (21-25) mmol/L ABG O2 Saturation (94-97) % Potassium (3.5-5.1) mmol/L Chloride (98-107) mmol/L Carbon Dioxide (22-30) mmol/L BUN (9-20) mg/dL Creatinine (0.66-1.25) mg/dL Glucose (74-99) mg/dL POC Glucose (mg/dL) (75-99) mg/dL Calcium (8.4-10.2) mg/dL Total Bilirubin (0.2-1.3) mg/dL AST (17-59) U/L Alkaline Phosphatase (38-126) U/L Total Protein (6.3-8.2) g/dL Albumin (3.5-5.0) g/dL Acetaminophen ug/mL 09/11/17 09/12/17 09/12/17 Range/Units 18:24 00:42 00:42 WBC (3.8-10.6) k/uL MCV (80.0-100.0) fL Neutrophils # (1.3-7.7) k/uL Lymphocytes # (1.0-4.8) k/uL PT 12.1 H (9.0-12.0) sec INR 1.2 H (<1.2) ABG pCO2 (35-45) mmHg ABG pO2 (83-108) mmHg ABG HCO3 (21-25) mmol/L ABG O2 Saturation (94-97) % Potassium 3.3 L (3.5-5.1) mmol/L Chloride 111 H 112 H (98-107) mmol/L Carbon Dioxide 19 L 18 L (22-30) mmol/L BUN 4 L 6 L (9-20) mg/dL Creatinine 0.60 L 0.60 L (0.66-1.25) mg/dL Glucose 69 L 118 H (74-99) mg/dL POC Glucose (mg/dL) (75-99) mg/dL Calcium 8.1 L 8.3 L (8.4-10.2) mg/dL Total Bilirubin (0.2-1.3) mg/dL AST (17-59) U/L Alkaline Phosphatase (38-126) U/L Total Protein 5.4 L 5.2 L (6.3-8.2) g/dL Albumin 3.0 L 2.9 L (3.5-5.0) g/dL Acetaminophen 235.0 H* 128.0 H* ug/mL 09/12/17 09/12/17 09/12/17 Range/Units 04:09 05:35 05:35 WBC 12.6 H (3.8-10.6) k/uL MCV 103.1 H (80.0-100.0) fL Neutrophils # 11.2 H (1.3-7.7) k/uL Lymphocytes # 0.8 L (1.0-4.8) k/uL PT (9.0-12.0) sec INR (<1.2) ABG pCO2 30 L (35-45) mmHg ABG pO2 185 H (83-108) mmHg ABG HCO3 19 L (21-25) mmol/L ABG O2 Saturation 100.0 H (94-97) % Potassium (3.5-5.1) mmol/L Chloride 112 H (98-107) mmol/L Carbon Dioxide 15 L (22-30) mmol/L BUN 5 L (9-20) mg/dL Creatinine 0.58 L (0.66-1.25) mg/dL Glucose 118 H (74-99) mg/dL POC Glucose (mg/dL) (75-99) mg/dL Calcium (8.4-10.2) mg/dL Total Bilirubin 3.9 H (0.2-1.3) mg/dL AST 169 H (17-59) U/L Alkaline Phosphatase (38-126) U/L Total Protein (6.3-8.2) g/dL Albumin (3.5-5.0) g/dL Acetaminophen ug/mL 09/12/17 09/12/17 09/12/17 Range/Units 05:35 05:35 06:05 WBC (3.8-10.6) k/uL MCV (80.0-100.0) fL Neutrophils # (1.3-7.7) k/uL Lymphocytes # (1.0-4.8) k/uL PT 13.4 H (9.0-12.0) sec INR 1.4 H (<1.2) ABG pCO2 (35-45) mmHg ABG pO2 (83-108) mmHg ABG HCO3 (21-25) mmol/L ABG O2 Saturation (94-97) % Potassium (3.5-5.1) mmol/L Chloride (98-107) mmol/L Carbon Dioxide (22-30) mmol/L BUN (9-20) mg/dL Creatinine (0.66-1.25) mg/dL Glucose (74-99) mg/dL POC Glucose (mg/dL) 115 H (75-99) mg/dL Calcium (8.4-10.2) mg/dL Total Bilirubin (0.2-1.3) mg/dL AST (17-59) U/L Alkaline Phosphatase (38-126) U/L Total Protein (6.3-8.2) g/dL Albumin (3.5-5.0) g/dL Acetaminophen 73.9 H* ug/mL Microbiology - Last 24 Hours (Table) 09/11/17 11:30 Gram Stain - Preliminary Sputum Sputum Culture - Preliminary Assessment and Plan (1) Suicide attempt Current Visit: Yes Status: Acute Code(s): T14.91XA - SNOMED Code(s): 76943857 (2) Depression Current Visit: Yes Status: Acute Code(s): F32.9 - MAJOR DEPRESSIVE DISORDER , SINGLE EPISODE, UNSPECIFIED SNOMED Code(s): 74626425 (3) Acetaminophen overdose Current Visit: Yes Status: Acute Code(s): T39.1X1A - POISONING BY 4- AMINOPHENOL DERIVATIVES, ACCIDENTAL, INIT SNOMED Code(s): 017145178 (4) Alcohol intoxication Current Visit: Yes Status: Acute Code(s): F10.929 - ALCOHOL USE, UNSPECIFIED WITH INTOXICATION, UNSPECIFIED SNOMED Code(s): 66651933 (5) Altered mental status Current Visit: Yes Status: Acute Code(s): R41.82 - ALTERED MENTAL STATUS, UNSPECIFIED SNOMED Code(s): 230736125 (6) Required emergent intubation Current Visit: Yes Status: Acute Code(s): Z98.890 - OTHER SPECIFIED POSTPROCEDURAL STATES SNOMED Code(s): 087437813 Plan: Plan dated 09/12/2017 The patient will continue 124 hours of oral N-acetylcysteine as per poison control. The patient will also repeat continue with IV fluids at 1 50 mL an hour. We'll DC the Adler catheter. We'll get a bed for him on the medical surgical floor. We'll have psychiatry come see him. Additional recommendations and suggestions are forthcoming. Prognosis is guarded given the fact that this is a second attempt. Time with Patient: Greater than 30
[2017-09-12] MEDS: ACETYLCYSTEINE 6,000 MG/30 ML VIAL PO SCH ×3 (12:15→21:35)
[2017-09-12 14:19] LABS: INR 1.7 (<1.2); Partial Thromboplastin Time 26.8 sec (22.0-30.0); Prothrombin Time 16.1 sec (9.0-12.0)
--- NOTE | 2017-09-12 14:24 | CONS ---
CONSULTATION DATE OF CONSULTATION: 09/12/17 REQUESTING PHYSICIAN: Dr. Bennett. REASON FOR CONSULTATION: Acute Tylenol toxicity. HISTORY OF PRESENT ILLNESS: The patient is a 31-year-old white male who apparently was in the process of going through a divorce and had a suicide attempt and swallowed 100 tablets of Tylenol and was admitted with Tylenol overdose. In the ER he was intubated because of airway protection and some altered mental status. However, this morning he is extubated. The patient states that he is feeling good. He denies any abdominal pain. He reports no nausea, vomiting. He had a similar episode of medication overdose with Aleve a few years ago. He was already started at the time of admission the hospital. In the emergency room, his serum transaminases were within normal limits. He was already started on IV Mucomyst drip. He reports he does drink alcohol on a regular basis, at least 6 beers a day for the last 10 years. Denies any history of chronic liver disease. No history of jaundice or hepatitis in the past. PAST MEDICAL HISTORY: Anxiety, depression, history of drug overdose in the past. PAST MEDICATIONS: At home, Effexor, Neurontin. ALLERGIES: None. SOCIAL HISTORY: Chronic alcohol use as mentioned above and smoking. FAMILY HISTORY: Thyroid disorder in the mom. REVIEW OF SYSTEMS: Cardiopulmonary denies any chest pain, shortness of breath. Genitourinary no dysuria, hematuria. Musculoskeletal unremarkable. Skin unremarkable. Endocrine unremarkable. Psychiatric unremarkable. History of anxiety, depression, and suicide intention. EXTREMITIES: No edema. Neurology unremarkable. Hematology unremarkable. Endocrine unremarkable. Constitutional: No recent weight loss. No fevers, chills or night sweats. PHYSICAL EXAMINATION: He appears comfortable. No apparent distress. Vital signs are stable. Blood pressure is 118/85, pulse rate 90, temperature 97. HEENT examination unremarkable. Conjunctivae pink. Sclerae anicteric. Oral cavit no lesions. Neck no jugular venous distention or lymph node enlargement. Chest was clear to auscultation. HEART: Regular rate and rhythm. Abdomen soft. Bowel sounds are positive. No organomegaly. Extremities no pedal edema. Skin no rashes. Neuro: Alert and oriented times three. No focal deficits. LABORATORY DATA: The labs from today, WBC 12.6, hemoglobin 16.3, platelets are normal. INR is 1.4. AST and ALT are normal at 60 and 66 respectively. T-bili however, went up to 3.9, alkaline phosphatase is 169. Acetaminophen level was 200 yesterday and today is 73.9. IMPRESSION: This is a patient who presents to the hospital with acute overdose of Tylenol and/Tylenol toxicity. By the time of admission to the hospital his serum transaminases were within normal limits. Serum acetaminophen level was 200 and today it is down to 73.9. The patient was already started on IV Mucomyst as per Poison Control, which is presently been given every 4 hours for the next 24 hours. His serum transaminases show an AST that went up to 169, ALT is up to 60, and T-bilirubin was up to 3.9. INR went up to 1.4, indicating that he does have some liver involvement at the present time. RECOMMENDATIONS: 1. Continue with IV Mucomyst. 2. We will repeat CMP and PT/INR every 6 hours. 3. If there is any evidence to suggest worsening coagulopathy or worsening serum transaminases, we will consider transferring him to a tertiary institute. The plan was discussed with the patient. He is agreeable to it. At this time we will follow him closely. Thank you for this consultation. MMLUL / IJN: [id number] /
[2017-09-12 14:25] LABS: ALT 332 U/L (21-72); Alkaline Phosphatase 68 U/L (38-126); Anion Gap 9 mmol/L; Blood Urea Nitrogen 4 mg/dL (9-20); Calcium 9.1 mg/dL (8.4-10.2); Carbon Dioxide 18 mmol/L (22-30); Chloride 109 mmol/L (98-107); Glucose 104 mg/dL (74-99); Non-African American GFR(MDRD) >60 (>60 ml/min/1.73 sqM); Potassium 4.3 mmol/L (3.5-5.1); Sodium 136 mmol/L (137-145); Total Bilirubin 6.8 mg/dL (0.2-1.3); Total Protein 6.5 g/dL (6.3-8.2)
[2017-09-12 14:32] LABS: AST 1224 U/L (17-59)
[2017-09-12 18:56] LABS: ALT 545 U/L (21-72); Alkaline Phosphatase 46 U/L (38-126); Anion Gap 9 mmol/L; Blood Urea Nitrogen 3 mg/dL (9-20); Calcium 8.6 mg/dL (8.4-10.2); Carbon Dioxide 23 mmol/L (22-30); Chloride 105 mmol/L (98-107); Glucose 102 mg/dL (74-99); Non-African American GFR(MDRD) >60 (>60 ml/min/1.73 sqM); Potassium 3.5 mmol/L (3.5-5.1); Sodium 137 mmol/L (137-145); Total Bilirubin 5.2 mg/dL (0.2-1.3); Total Protein 5.9 g/dL (6.3-8.2)
[2017-09-12 19:04] LABS: Partial Thromboplastin Time 25.8 sec (22.0-30.0); Prothrombin Time 18.9 sec (9.0-12.0)
[2017-09-12 19:16] LABS: AST 1815 U/L (17-59)
[2017-09-12 22:34] VITALS: TEMP 98.2
[2017-09-13 00:18] VITALS: BP 140/82; PULSE 94; RESP 20
--- NOTE | 2017-09-13 05:18 | DS ---
DISCHARGE SUMMARY DATE OF ADMISSION: 09/11/2017. DATE OF TRANSFER: 09/12/2017 This is a 31-year-old patient with no family doctor, going through a divorce, living with his girlfriend. Drinks about half a case of beer. Has done before and does mushrooms. 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 Also smokes cigarettes. The patient's girlfriend called EMS. The patient took an overdose of 100 tablets of Tylenol PM and fifth of liquor, possibly intention of killing himself. She did make him vomit once. The patient was intubated in the ICU. Started on Mucomyst drip and Diprivan, was extubated this morning. Patient's pro time has gone up from 12.3 to 18.9. AST went from 33 up to 1815 and ALT has gone from 25 to 545. The patient has been getting IV Mucomyst. The patient's acetaminophen level on presentation was 319 and this morning it was 73. The patient was seen by Dr. Nick Lopes from because of impending liver failure and high dose of acetaminophen intake. The patient is being transferred [facility] for higher level of care. We do not have any transplant team here. The patient did have a sitter at the bedside. CONSULTATIONS: Dr. Nick Lopes from ; Dr. Hart from Critical Care; Dr. Pritchard from Psychiatry. DISPOSITION: [facility]. I discussed with the ICU fellow for transfer. Currently patient lying down, no abdominal tenderness. Able to eat small amounts. Discharge planning more than 35 minutes. MMODL / IJN: [id number] /
--- NOTE | 2017-09-13 16:20 | P.CN ---
Psychiatric Consult - . Consult date: 09/12/17 Consult:: VITALS: Temp 98.2 F 09/12/17 20:00 Pulse 94 09/13/17 00:00 Resp 20 09/13/17 00:00 BP 140/82 09/13/17 00:00 Pulse Ox 99 09/13/17 00:00 I/O: 09/12/17 09/13/17 09/13/17 18:59 06:59 18:59 Intake Total 1262.5 2100 Output Total 450 650 Balance 812.5 1450 Intake: IV 1262.5 1500 Dextrose 5% in Water 1, 62.5 000 ml @ 64.688 mls/hr IV .Q16H ONE with Acetylcysteine IV 7,000 mg Rx#:[id number] Sodium Chloride 0.9% 1, 1200 1500 000 ml @ 150 mls/hr IV . Q6H40M [facility] Rx#:[id number] Oral 600 Output: Urine 450 650 Other: Voiding Method Toilet Toilet Urinal Urinal # Voids 2 LABS: WBC 12.6 k/uL (3.8-10.6) H 09/12/17 05:35 RBC 4.88 m/uL (4.30-5.90) 09/12/17 05:35 Hgb 16.3 gm/dL (13.0-17.5) 09/12/17 05:35 Hct 50.3 % (39.0-53.0) 09/12/17 05:35 MCV 103.1 fL (80.0-100.0) H 09/12/17 05:35 MCH 33.5 pg (25.0-35.0) 09/12/17 05:35 MCHC 32.5 g/dL (31.0-37.0) 09/12/17 05:35 RDW 12.4 % (11.5-15.5) 09/12/17 05:35 Plt Count 176 k/uL (150-450) 09/12/17 05:35 Neutrophils % 89 % 09/12/17 05:35 Lymphocytes % 7 % 09/12/17 05:35 Monocytes % 3 % 09/12/17 05:35 Eosinophils % 1 % 09/12/17 05:35 Basophils % 0 % 09/12/17 05:35 Neutrophils # 11.2 k/uL (1.3-7.7) H 09/12/17 05:35 Lymphocytes # 0.8 k/uL (1.0-4.8) L 09/12/17 05:35 Monocytes # 0.3 k/uL (0-1.0) 09/12/17 05:35 Eosinophils # 0.1 k/uL (0-0.7) 09/12/17 05:35 Basophils # 0.0 k/uL (0-0.2) 09/12/17 05:35 Macrocytosis Slight 09/12/17 05:35 PT 18.9 sec (9.0-12.0) H 09/12/17 18:37 INR 2.0 (<1.2) H 09/12/17 18:37 APTT 25.8 sec (22.0-30.0) 09/12/17 18:37 Sample Site [email or web address] 09/12/17 04:09 ABG pH 7.41 (7.35-7.45) 09/12/17 04:09 ABG pCO2 30 mmHg (35-45) L 09/12/17 04:09 ABG pO2 185 mmHg (83-108) H 09/12/17 04:09 ABG HCO3 19 mmol/L (21-25) L 09/12/17 04:09 ABG Total CO2 20 mmol/L (19-24) 09/12/17 04:09 ABG O2 Saturation 100.0 % (94-97) H 09/12/17 04:09 ABG Base Excess -5.1 mmol/L 09/12/17 04:09 FiO2 40 % 09/12/17 04:09 Sodium 137 mmol/L (137-145) 09/12/17 18:37 Potassium 3.5 mmol/L (3.5-5.1) 09/12/17 18:37 Chloride 105 mmol/L (98-107) 09/12/17 18:37 Carbon Dioxide 23 mmol/L (22-30) 09/12/17 18:37 Anion Gap 9 mmol/L 09/12/17 18:37 BUN 3 mg/dL (9-20) L 09/12/17 18:37 Creatinine 0.57 mg/dL (0.66-1.25) L 09/12/17 18:37 Est GFR (MDRD) Af Amer >60 (>60 ml/min/1.73 sqM) 09/12/17 18:37 Est GFR (MDRD) Non-Af >60 (>60 ml/min/1.73 sqM) 09/12/17 18:37 Glucose 102 mg/dL (74-99) H 09/12/17 18:37 POC Glucose (mg/dL) 115 mg/dL (75-99) H 09/12/17 06:05 POC Glu Agent Broker ID Chikis Henson 09/12/17 06:05 Plasma Lactic Acid Robin 1.6 mmol/L (0.7-2.0) 09/11/17 11:47 Calcium 8.6 mg/dL (8.4-10.2) 09/12/17 18:37 Phosphorus 2.6 mg/dL (2.5-4.5) 09/12/17 05:35 Magnesium 2.1 mg/dL (1.6-2.3) 09/12/17 05:35 Total Bilirubin 5.2 mg/dL (0.2-1.3) H 09/12/17 18:37 AST 1815 U/L (17-59) H 09/12/17 18:37 ALT 545 U/L (21-72) H 09/12/17 18:37 Alkaline Phosphatase 46 U/L (38-126) 09/12/17 18:37 Total Protein 5.9 g/dL (6.3-8.2) L 09/12/17 18:37 Albumin 3.4 g/dL (3.5-5.0) L 09/12/17 18:37 Salicylates <1.0 mg/dL 09/11/17 05:39 Urine Opiates Screen Not Detected (NotDetected) 09/11/17 05:39 Ur Oxycodone Screen Not Detected (NotDetected) 09/11/17 05:39 Urine Methadone Screen Not Detected (NotDetected) 09/11/17 05:39 Ur Propoxyphene Screen Not Detected (NotDetected) 09/11/17 05:39 Acetaminophen 73.9 ug/mL H* 09/12/17 05:35 Ur Barbiturates Screen Not Detected (NotDetected) 09/11/17 05:39 U Tricyclic Antidepress Not Detected (NotDetected) 09/11/17 05:39 Ur Phencyclidine Scrn Not Detected (NotDetected) 09/11/17 05:39 Ur Amphetamines Screen Not Detected (NotDetected) 09/11/17 05:39 U Methamphetamines Scrn Not Detected (NotDetected) 09/11/17 05:39 U Benzodiazepines Scrn Not Detected (NotDetected) 09/11/17 05:39 Urine Cocaine Screen Not Detected (NotDetected) 09/11/17 05:39 U Marijuana (THC) Screen Not Detected (NotDetected) 09/11/17 05:39 Serum Alcohol 143 mg/dL 09/11/17 11:47 PSYCHIATRY CONSULTATION: HPI: Patient is a 31 year old male who presented to the emergency room after overdosing on at least 100 Tylenol PM's while heavily intoxicated with the intention of . Prior to suicide attempt, patient took a photo of the empty pill bottle and messaged girlfriend about what he had done. This is patient's second suicide attempt in 2-months his last being an Aleve overdose where he was treated at [place] and once stabilized and starting some form of treatment left AMA. Patient admits that to being told during his former hospitalization, "well, it was a damn good thing you didn't overdose on Tylenol " so patient decided this time to specifically choose a more lethal method. Patient reports the night of his overdose he was at a graveyard drinking with friends and girlfriend. Patient and girlfriend got into a quarrel, and at some point patient went home. Patient later called a Taxi, went into a 24-hour drug store, selected Tylenol PM thinking it would be his most lethal avenue, called a new Taxi, arrived back at his house, and ingested ~100 tablets. He had been drinking that day and has memory of consuming at the least 6-8 beers + 1/5 Vodka (which was partially shared with girlfriend). PSYCHIATRIC HISTORY: 1 hospitalization after OD in May, no other history, no history of IP rehabilitation PMH: ETOH, Overdose of Aleve, Osteomyelitis of third toe on right as a child, History of Any Multi-Drug Resistant Organisms: None Reported Past Surgical History: Adenoidectomy, Tonsillectomy Past Anesthesia/Blood Transfusion Reactions: No Reported Reaction Smoking Status: Current every day smoker FHX: Mother History Unknown: Yes Family Medical History: Thyroid Disorder Additional Family Medical History / Comment(s): Vertigo, Chronic Pain, Sister(s) History Unknown: Yes Family Medical History: Diabetes Mellitus HOME MEDICATIONS: 3 Medication Instructions Recorded Confirmed Gabapentin [Neurontin] 300 mg PO TID 09/11/17 09/11/17 Venlafaxine HCl [Effexor XR] 75 mg PO DAILY 09/11/17 09/11/17 ALLERGIES: 3 Allergy/AdvReac Type Severity Reaction Status Date / Time No Known Allergies Allergy Verified 09/11/17 12:48 SOCIAL HISTORY: education: HS diploma 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: lives with girlfriend, previously and children : no rastafari: no preference access to firearms: no sexual orientation: heterosexual safety at home: yes STRENGTHS/WEAKNESSES: strong family support, assertive / looming divorce and relationship problems with whom he is MENTAL STATUS EXAM: Appearance: alert, well groomed, appears stated age, sitting up in ICU bed S/P extubation Behavior: notable psychomotor agitation, no abnormal movements, fair eye contact Attitude: cooperative Speech: normal rate, rhythm, fluency, articulation, volume, and prosody; primary language: Serbian Mood: euthymic Affect: congruent, reactive Thought processes: linear Thought content: patient does not appear to be responding to internal stimuli; patient denies auditory and visual hallucinations, no delusions appreciated Insight: poor Judgment: poor Cognitive: oriented to all 3 spheres, average intelligence Assessment and Plan (1) Major depress dis, severe Status: Acute Code(s): F32.2 - MAJOR DEPRESSV DISORD, SINGLE EPSD, SEV W/O PSYCH FEATURES SNOMED Code(s): 081047687 (2) Suicide attempt by acetaminophen overdose Status: Acute Code(s): T39.1X2A - POISONING BY 4-AMINOPHENOL DERIVATIVES, SELF -HARM, INIT SNOMED Code(s): 676202659 (3) Alcohol use disorder, severe, dependence Status: Acute Code(s): F10.20 - ALCOHOL DEPENDENCE, UNCOMPLICATED SNOMED Code(s): 284355785 Plan: Continue medical stabilization, it is likely he will require inpatient admission to mental health but such decision should be deferred until patient is optimized No psychotropic medications are indicated until patient is medically stabilized and cleared 20-minutes of Motivational Interviewing performed, patient is stage 4: ambivalent about his alcohol use Psychiatry will follow Time with Patient: Greater than 30
== END 2017-09-13 01:01 | disposition short-term general hospital (02) | DRG 812 ==
LOC: EC 05:23 → 6ICU 07:33
PROVIDERS: ADMIT Hospitalist; ATTEND Hospitalist
PROC: 5A1935Z Respiratory Ventilation, Less than 24 Consecutive Hours (ICD-10-PCS; principal; 2017-09-11)
PROC: 0BH17EZ Insertion of Endotracheal Airway into Trachea, Via Natural or Artificial Opening (ICD-10-PCS; 2017-09-11)
DX: T39.1X2A Poisoning by 4-Aminophenol derivatives, intentional self-harm, initial encounter (principal); J96.01 Acute respiratory failure with hypoxia; G93.41 Metabolic encephalopathy; F32.9 Major depressive disorder, single episode, unspecified; T88.4XXA Failed or difficult intubation, initial encounter; T45.0X2A Poisoning by antiallergic and antiemetic drugs, intentional self-harm, initial encounter; F10.229 Alcohol dependence with intoxication, unspecified; F41.9 Anxiety disorder, unspecified; F12.90 Cannabis use, unspecified, uncomplicated; F17.210 Nicotine dependence, cigarettes, uncomplicated; Z79.899 Other long term (current) drug therapy; Z91.5 Personal history of self-harm; Z63.5 Disruption of family by separation and divorce; Y92.9 Unspecified place or not applicable; Y90.8 Blood alcohol level of 240 mg/100 ml or more
CPT/HCPCS: 31500; 36415; 36600; 43753; 51702; 71010; 80053; 80306; 80320; 82805; 83520; 83605; 83735; 84100; 85025; 85610; 85730; 87070; 87205; 94002; 94003; 96361; 96365; 96366; 99285

== ENCOUNTER 2017-09-19 21:51 | Inpatient (IN) | payer MEDICAID ==
[2017-09-20] MEDS: NICOTINE 21MG/24HR PATCH TRANSDERM SCH (14:56)
--- NOTE | 2017-09-20 15:46 | P.HPMEDMHU ---
History of Present Illness H&P Date: 09/20/17 Chief Complaint: Status post Tylenol overdose 31-year-old male that comes and after a admission to [facility]. Patient was originally admitted to the ICU here and was treated on the ventilator. Patient was transferred to [facility] liver enzymes were increasing. This is per patient history. Patient was admitted to the psychiatric unit after he was discharged from [facility]. He denies any suicidal ideations at this time. Patient says that this was caused by his drinking. Review of Systems Constitutional: Denies chills, Denies fever Eyes: denies blurred vision, denies pain Ears, nose, mouth and throat: Denies headache, Denies sore throat Cardiovascular: Denies chest pain, Denies shortness of breath Respiratory: Denies cough Gastrointestinal: Denies abdominal pain, Denies diarrhea, Denies nausea, Denies vomiting Musculoskeletal: Denies myalgias Integumentary: Denies pruritus, Denies rash Neurological: Denies numbness, Denies weakness Psychiatric: Denies anxiety, Denies depression Endocrine: Denies fatigue, Denies weight change Past Medical History Additional Past Medical History / Comment(s): Pt recently admitted to [facility] on with tylenol PM overdose along with consuming 1/5 liquor-hypoxic respiratory failure with intubation and transfered to [facility] where they tx him with IVF and eventually liver enzymes improved. Pt sent back to [facility] psychiatric unit for further tx. Other Hx: Osteomyelitis of third toe on right foot as a child, L foot injury with blood poisoning. History of Any Multi-Drug Resistant Organisms: None Reported Past Surgical History: Adenoidectomy, Orthopedic Surgery, Tonsillectomy Additional Past Surgical History / Comment(s): R foot toe amp with reattachment , L foot scraping. Past Anesthesia/Blood Transfusion Reactions: No Reported Reaction Smoking Status: Current every day smoker Past Alcohol Use History: Heavy - Past Family History Mother History Unknown: Yes Family Medical History: Thyroid Disorder Additional Family Medical History / Comment(s): Vertigo, Chronic Pain, Sister(s) History Unknown: Yes Family Medical History: Diabetes Mellitus Medications and Allergies Home Medications Medication Instructions Recorded Confirmed Type Nicotine 21Mg/24Hr Patch [Habitrol 1 patch TRANSDERM DAILY 09/20/17 09/20/17 History 21Mg/24Hr Patch] Sennosides [Senna] 8.6 mg PO DAILY 09/20/17 09/20/17 History Sertraline [Zoloft] 50 mg PO DAILY 09/20/17 09/20/17 History Allergies Allergy/AdvReac Type Severity Reaction Status Date / Time No Known Allergies Allergy Verified 09/20/17 13:43 Physical Exam Vitals: Intake and Output 09/20/17 09/20/17 09/20/17 06:59 14:59 22:59 Other: Weight 65.4 kg Patient Weight 09/21/17 06:59 Weight 65.4 kg - Constitutional General appearance: no acute distress - EENT Eyes: EOMI - Neck Neck: no lymphadenopathy - Respiratory Respiratory: bilateral: CTA, negative: rales, rhonchi, wheezing - Cardiovascular Rhythm: regular Heart sounds: normal: S1, S2 - Gastrointestinal General gastrointestinal: no organomegaly, soft, no tenderness - Integumentary Integumentary: no flushed, normal turgor, no rash - Musculoskeletal Musculoskeletal: strength equal bilaterally - Psychiatric Psychiatric: A&O x's 3, appropriate affect, intact judgment & insight Cranial Nerve Examination - Cranial Nerves Cranial Nerve II- Optic: Intact Cranial Nerve III- Oculomotor: Intact Cranial Nerve IV- Trochlear: Intact Cranial Nerve V- Trigeminal: Intact Cranial Nerve - Abducens: Intact Cranial Nerve VII- Facial: Intact Cranial Nerve VIII- Auditory: Intact Cranial Nerve IX- Glossopharyngeal: Intact Cranial Nerve X- Vagus: Intact Cranial Nerve XI- Accessory: Intact Cranial Nerve XII- Hypoglossal: Intact Assessment and Plan (1) Acetaminophen overdose Narrative/Plan: Treated at [facility]. Current Visit: No Status: Acute Code(s): T39.1X1A - POISONING BY 4- AMINOPHENOL DERIVATIVES, ACCIDENTAL, INIT SNOMED Code(s): 516549632 (2) Depression Narrative/Plan: Psychiatry patient denies this being a suicide attempt or denies having any suicidal ideations at this time. Patient says that this was just triggered by his drinking. But he does not have any suicidal ideations Current Visit: No Status: Acute Code(s): F32.9 - MAJOR DEPRESSIVE DISORDER, SINGLE EPISODE, UNSPECIFIED SNOMED Code(s): 57703476 (3) Alcohol abuse Narrative/Plan: counselled Current Visit: Yes Status: Acute Code(s): F10.10 - ALCOHOL ABUSE, UNCOMPLICATED SNOMED Code(s): 80403508 (4) Tobacco abuse Narrative/Plan: Counseled about tobacco cessation Current Visit: Yes Status: Acute Code(s): Z72.0 - TOBACCO USE SNOMED Code( s): 184392292
[2017-09-21] MEDS: SERTRALINE 50 MG TAB PO SCH (08:50)
[2017-09-21] MEDS: NICOTINE 21MG/24HR PATCH TRANSDERM SCH (08:50)
--- NOTE | 2017-09-21 22:58 | P.HP ---
Psychiatric H&P - . H&P Date: 09/21/17 History & Physical: Allergy/AdvReac Type Severity Reaction Status Date / Time No Known Allergies Allergy Verified 09/20/17 13:43 VITALS: Temp 97.9 F 09/21/17 06:38 Pulse 50 L 09/21/17 06:38 Resp 14 09/21/17 06:38 BP 114/57 09/21/17 06:38 Pulse Ox I/O'S: 09/20/17 09/21/17 09/21/17 18:59 06:59 18:59 Weight 65.4 kg HPI: (09/21/2017) Patient is a 31-year-old male who was transferred from [facility] ICU to [facility] liver transplant unit due to concerns of impending liver failure on 08/13/2017 after overdosing on at least 100 Tylenol PM's while heavily intoxicated with the intention of . At time of admission in ICU patients acetaminophen level was 319. Patient was evaluated by Psychiatry prior to transfer with recommendation of inpatient mental health admission after being medically optimized. Today, patient is much more agreeable to psychiatric and substance abuse treatment than his initial encounter in the ICU. He reports being very afraid he was going to and feels like he has been given a second chance. Patient also openly admits this time to having an alcohol problem. He states clearly that when he starts drinking he usually cannot stop until he is he is heavily intoxicated often to the point of blacking out. He is agreeable to medication therapy and rehabilitation although he states he cannot do a 30- day residential program due to fear of missing too much work. He is however agreeable to other alternatives with the exception of AA. ICU CONSULT: (09/12/2017) Patient is a 31 year old male who presented to the emergency room after overdosing on at least 100 Tylenol PM's while heavily intoxicated with the intention of . Prior to suicide attempt, patient took a photo of the empty pill bottle and messaged girlfriend about what he had done. This is patient's second suicide attempt in 2-months his last being an Aleve overdose where he was treated at [facility] and once stabilized and starting some form of treatment left AMA. Patient admits that to being told during his former hospitalization, "well, it was a damn good thing you didn't overdose on Tylenol " so patient decided this time to specifically choose a more lethal method. Patient reports the night of his overdose he was at a graveyard drinking with friends and girlfriend. Patient and girlfriend got into a quarrel, and at some point patient went home. Patient later called a Taxi, went into a 24-hour drug store, selected Tylenol PM thinking it would be his most lethal avenue, called a new Taxi, arrived back at his house, and ingested ~100 tablets. He had been drinking that day and has memory of consuming at the least 6-8 beers + 1/5 Vodka (which was partially shared with girlfriend). PSYCHIATRIC HISTORY: 1 hospitalization after OD in May, no other history, no history of IP rehabilitation PMH: ETOH, Overdose of Aleve, Osteomyelitis of third toe on right as a child, History of Any Multi-Drug Resistant Organisms: None Reported Past Surgical History: Adenoidectomy, Tonsillectomy Past Anesthesia/Blood Transfusion Reactions: No Reported Reaction Smoking Status: Current every day smoker FHX: Mother History Unknown: Yes Family Medical History: Thyroid Disorder Additional Family Medical History / Comment(s): Vertigo, Chronic Pain, Sister(s) History Unknown: Yes Family Medical History: Diabetes Mellitus HOME MEDICATIONS: 3 Medication Instructions Recorded Confirmed Gabapentin [Neurontin] 300 mg PO TID 09/11/17 09/11/17 Venlafaxine HCl [Effexor XR] 75 mg PO DAILY 09/11/17 09/11/17 ALLERGIES: 3 Allergy/AdvReac Type Severity Reaction Status Date / Time No Known Allergies Allergy Verified 09/11/17 12:48 SOCIAL HISTORY: education: HS diploma 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: lives with girlfriend, previously and children : no episcopal: no preference access to firearms: no sexual orientation: heterosexual safety at home: yes STRENGTHS/WEAKNESSES: strong family support, assertive / looming divorce and relationship problems with whom he is MENTAL STATUS EXAM: Appearance: alert, well groomed, appears stated age, steady gait Behavior: notable psychomotor agitation, no abnormal movements, fair eye contact Attitude: cooperative Speech: normal rate, rhythm, fluency, articulation, volume, and prosody; primary language: [place]an Mood: euthymic Affect: congruent, reactive Thought processes: linear Thought content: patient does not appear to be responding to internal stimuli; patient denies auditory and visual hallucinations, no delusions appreciated Insight: poor Judgment: poor Cognitive: oriented to all 3 spheres, average intelligence Assessment and Plan (1) Major depress dis, severe Narrative/Plan: Start Welllbutrin XL 150-mg PO QAM Current Visit: Yes Status: Acute Priority: High Code(s): F32.2 - MAJOR DEPRESSV DISORD, SINGLE EPSD, SEV W/O PSYCH FEATURES SNOMED Code(s): 253004139 (2) Alcohol use disorder, severe, dependence Narrative/Plan: Once liver enzymes normalize, patient would be a good candidate for Naltrexone trial followed by Vivitrol Current Visit: No Status: Acute Priority: High Code(s): F10.20 - ALCOHOL DEPENDENCE, UNCOMPLICATED SNOMED Code(s): 031325340 (3) Suicide attempt by acetaminophen overdose Current Visit: No Status: Resolved Code(s): T39.1X2A - POISONING BY 4- AMINOPHENOL DERIVATIVES, SELF-HARM, INIT SNOMED Code(s): 455245220 Plan: Continue hospitalization, patient signed voluntary admission form SW will work with patient/family to establish a safe discharge plan Patient will be presented with various OP options prior to discharge to choose from for OP alcohol rehabilitation Attempt to arrange a family meeting with mother, stepfather, and girlfriend all present together prior to discharge so that when patient leaves everyone is clear on plan of recourse should patient begin to regress Time with Patient: Greater than 30
[2017-09-22 06:51] VITALS: BP 110/75; PULSE 66; RESP 16; TEMP 97.6
[2017-09-22] MEDS: SERTRALINE 50 MG TAB PO SCH (08:32)
[2017-09-22] MEDS: NICOTINE 21MG/24HR PATCH TRANSDERM SCH (08:32)
[2017-09-22 09:34] LABS: Basophils # (A) 0.1 k/uL (0-0.2); Basophils % (A) 1 %; CH 32.9; CHCM 32.5; Eosinophils # (A) 0.1 k/uL (0-0.7); Eosinophils % (A) 2 %; HCT 47.2 % (39.0-53.0); HDW 1.91; HGB 15.7 gm/dL (13.0-17.5); Luc # (Auto) 0.11; Luc % (Auto) 2; Lymphocytes # (A) 1.3 k/uL (1.0-4.8); Lymphocytes % (A) 21 %; MCH 33.8 pg (25.0-35.0); MCHC 33.3 g/dL (31.0-37.0); MCV 101.4 fL (80.0-100.0); Macrocytosis Slight; Mean Platelet Volume 7.7; Monocytes # (A) 0.5 k/uL (0-1.0); Monocytes % (A) 8 %; Neutrophils # (A) 4.2 k/uL (1.3-7.7); Neutrophils % (A) 67 %; RBC 4.66 m/uL (4.30-5.90); RDW 13.6 % (11.5-15.5); WBC 6.3 k/uL (3.8-10.6); WBC (Perox) 6.21
[2017-09-22 09:49] LABS: ALT 624 U/L (21-72); AST 63 U/L (17-59); Acetaminophen <10.0 ug/mL; Alkaline Phosphatase 77 U/L (38-126); Total Bilirubin 2.2 mg/dL (0.2-1.3); Total Protein 7.4 g/dL (6.3-8.2)
--- NOTE | 2017-10-23 22:01 | P.DS ---
Providers Date of admission: 09/20/17 13:00 Expected date of discharge: 09/22/17 Attending physician: Marty Pritchard DO Consults: 09/20/17 14:29 Consult Physician Routine Consulting Provider: Kati Physician Consult Reason/Comments: H and P and medical management Do you want consulting provider notified?: Already Contacted Primary care physician: Wilfredo Mendoza - Discharge Diagnosis(es) (1) Major depress dis, severe Status: Acute Priority: High (2) Alcohol use disorder, severe, dependence Status: Acute Priority: High Hospital Course: HOSPITAL COURSE: * Legal status at discharge: Voluntary * Compliant with medications: Yes * Reported adverse side effects: None * Required restraints/seclusion: No * Emergency Medication administered: No * Attended group, recreational, activity therapies: Yes, consistently Patient excited to go home, reports family meeting went well, plans to continue Zoloft and follow up with AA. At this time, patient denies SI/HI/AVH Per SW (09/22/2017: fam mtg held with pt, pt's brother, and pt's mother from [phone]. Meeting went really well and was extremely productive. Pt's family presented as extremely kind, supportive, and encouraging towards pt. Pt's mood was bright, thoughts are organized, and speech is soft. Discussed what triggered pt's admission. Per pt, he was having "relationship issues" with his now (ex) girlfriend and was drinking. Pt identified drinking and the people he drinks with as triggers. Pt stated that he broke up with his girlfriend and now the girlfriend has moved out of his apartment. Mom was supportive and confirmed that pt and pt's gf had a volatile relationship. Discussed relapse prevention: pt states every time he "craves a beer", he will drink a water/replace it with something healthy. Pt still declines inpatient rehab, as he states he has child support and not working is not an option for him at this time, however pt is willing to do outpatient counseling and attend AA meetings. Discussed coping skills- pt states walking, breathing, and going for walks help him. Mom states that pt has great family support and express no concerns if he were to be d/c today. Pt agreed with this and states he feels ready to "move forward with his life". Pt denies s/h/i. Mom states that she lives very close to pt and is willing to set up a weekly med box for him and keep the rx bottles at her home. Per pt, there are no guns in his home and he does not have any access to guns. Mom and brother both feel pt has improved and feel that he is ready for d/c today. Will update tx team. HPI: (09/21/2017) Patient is a 31-year-old male who was transferred from [facility] ICU to [facility] liver transplant unit due to concerns of impending liver failure on 08/13/2017 after overdosing on at least 100 Tylenol PM's while heavily intoxicated with the intention of . At time of admission in ICU patients acetaminophen level was 319. Patient was evaluated by Psychiatry prior to transfer with recommendation of inpatient mental health admission after being medically optimized. Today, patient is much more agreeable to psychiatric and substance abuse treatment than his initial encounter in the ICU. He reports being very afraid he was going to and feels like he has been given a second chance. Patient also openly admits this time to having an alcohol problem. He states clearly that when he starts drinking he usually cannot stop until he is he is heavily intoxicated often to the point of blacking out. He is agreeable to medication therapy and rehabilitation although he states he cannot do a 30- day residential program due to fear of missing too much work. He is however agreeable to other alternatives with the exception of AA. Discussed starting antidepressant. Patient opts for Zoloft and started 50-mg PO QAM with no reported adverse or side effects. ICU CONSULT: (09/12/2017) Patient is a 31 year old male who presented to the emergency room after overdosing on at least 100 Tylenol PM's while heavily intoxicated with the intention of . Prior to suicide attempt, patient took a photo of the empty pill bottle and messaged girlfriend about what he had done. This is patient's second suicide attempt in 2-months his last being an Aleve overdose where he was treated at [facility] and once stabilized and starting some form of treatment left AMA. Patient admits that to being told during his former hospitalization, "well, it was a damn good thing you didn't overdose on Tylenol " so patient decided this time to specifically choose a more lethal method. Patient reports the night of his overdose he was at a graveyard drinking with friends and girlfriend. Patient and girlfriend got into a quarrel, and at some point patient went home. Patient later called a Taxi, went into a 24-hour drug store, selected Tylenol PM thinking it would be his most lethal avenue, called a new Taxi, arrived back at his house, and ingested ~100 tablets. He had been drinking that day and has memory of consuming at the least 6-8 beers + 1/5 Vodka (which was partially shared with girlfriend). MENTAL STATUS EXAM: Appearance: alert, well groomed, appears stated age, steady gait Behavior: no psychomotor agitation or psychomotor retardation, no abnormal movements, fair eye contact Attitude: cooperative Speech: normal rate, rhythm, fluency, articulation, volume, and prosody; primary language: Portuguese Mood: mildly anxious Affect: congruent, reactive Thought processes: linear Thought content: patient does not appear to be responding to internal stimuli ; patient denies auditory and visual hallucinations, no delusions appreciated Insight: limited but improving Judgment: poor but improving Cognitive: oriented to all 3 spheres, average intelligence Patient Condition at Discharge: Stable Plan - Discharge Summary Discharge Rx Participant: No New Discharge Prescriptions: New Sertraline [Zoloft] 50 mg PO DAILY #14 tab Continue Nicotine 21Mg/24Hr Patch [Habitrol] 1 patch TRANSDERM DAILY #14 patch Sennosides [Senna] 8.6 mg PO DAILY #14 tablet Discontinued Sertraline [Zoloft] 50 mg PO DAILY Discharge Medication List Nicotine 21Mg/24Hr Patch [Habitrol] 1 patch TRANSDERM DAILY #14 patch 09/22/17 [ Rx] Sennosides [Senna] 8.6 mg PO DAILY #14 tablet 09/22/17 [Rx] Sertraline [Zoloft] 50 mg PO DAILY #14 tab 09/22/17 [Rx] Follow up Appointment(s)/Referral(s): [facility] [Outside] - 09/27/17 3:00 pm (Wilfredo Curry DO [Primary Care Provider] - As Needed Patient Instructions/Handouts: Cigarette Smoking and Your Health (GEN), Depression (GEN), Abuse of Alcohol (GEN) Activity/Diet/Wound Care/Special Instructions: Activity and diet as tolerated. Avoid the use of street drugs and alcohol. Take all medications as prescribed. When you are in need of refills on your medication please contact your medical provider and/or outpatient psychiatrist to have this done. Please go to scheduled outpatient appointment for aftercare treatment. If symptoms return or become worse call the crisis line at [phone] and/or go to the nearest emergency room for an evaluation. Discharge Disposition: HOME SELF-CARE
== END 2017-09-22 13:35 | disposition home or self-care (01) | DRG 751 ==
LOC: 3MHU 09-20 13:00
PROVIDERS: ADMIT Psychiatry & Neurology Psychiatry; ATTEND Psychiatry & Neurology Psychiatry
DX: F32.2 Major depressive disorder, single episode, severe without psychotic features (principal); F10.20 Alcohol dependence, uncomplicated; Z91.5 Personal history of self-harm; F17.200 Nicotine dependence, unspecified, uncomplicated; Z79.899 Other long term (current) drug therapy
CPT/HCPCS: 80076; 83520; 84443; 85025